=== PATIENT | male | born 1985 | race Asian ===

== ENCOUNTER 2019-04-01 15:03 | Inpatient (IN) | payer OTHER ==
[~2019-04-01] VITALS: Ht 172.7 cm; Wt 83.5 kg
--- NOTE | 2019-04-01 15:19 | NUR ---
SE RECIBE AL PACIENTE ALERTA Y ORIENTADO POR CLEM ESFERAS. PACIENTE REFIERE QUE VIENE POR AFUA ABDOMINALES. PACIENTE VIENE CON [facility] PARA DESCARTAR APENDICITIS.
--- NOTE | 2019-04-01 16:26 | NUR ---
PT ALERTA Y ORIENTADO X3 ESFERAS SE LE ORIENTA SOBRE TX Y REFIERE ENTEDER. SE JUSTINE MUESTRAS DE JEAN Y VENOPUNCION CON TECNICAS ASEPTICAS. PENDIENTE CT ABDOMINAL/PELVICO SIN CONTRASTE.
== END 2019-04-03 12:54 | disposition home or self-care (01) | DRG 343 ==
LOC: ER 15:03 → SEC-K 20:11 → SURH 23:58
PROVIDERS: ADMIT Surgery
PROC: 0DTJ4ZZ Resection of Appendix, Percutaneous Endoscopic Approach (ICD-10-PCS; principal; 2019-04-01 20:00)
DX: K35.890 Other acute appendicitis without perforation or gangrene (principal)